=== PATIENT | female | born 1970 | race Two or more races ===

== ENCOUNTER 2020-12-12 03:28 | Emergency (ER) | payer OTHER ==
[~2020-12-12] VITALS: Ht 157.5 cm; Wt 59.0 kg
[2020-12-12] MEDS ORDERED: LITHOBID300 M1 PO (03:41)
[2020-12-12] MEDS ORDERED: CLONAZEPAM0.5 MG PO (03:41)
[2020-12-12] MEDS ORDERED: RESTORIL30 M1 PO (03:42)
== END 2020-12-12 13:10 | disposition home or self-care (01) ==
LOC: ER 03:28
DX: K59.09 Other constipation (principal); R10.13 Epigastric pain